=== PATIENT | male | born 1975 | race Caucasian/White ===

== ENCOUNTER → 2017-06-30 | Outpatient (CLI) | payer BC ==
[2017-06-30 15:38] LABS: HEMATOCRIT 45.4 % (42.0-52.0); HEMOGLOBIN 16.5 g/dl (13.5-18.0); MEAN CELL VOLUME 79 fl (80.0-100.0); MEAN CORPUSCULAR HEMOGLOBIN 29 pg (27.0-31.0); MEAN CORPUSCULAR HGB CONC 36 g/dl (33.0-37.0); MEAN PLATELET VOLUME 11.2 fl (7.4-10.4); PLATELET COUNT 194 K/mm3 (130-400); RED BLOOD COUNT 5.76 M/mm3 (4.20-5.60); REDCELL DISTRIBUTION WIDTH-CV 12.2 % (11.5-14.5)
[2017-06-30 15:45] LABS: ALBUMIN 4.2 gm/dL (3.5-5.0); BILIRUBIN,TOTAL 1.4 mg/dL (0.0-1.0); CALCIUM 9.2 mg/dL (8.4-10.2); CHOLESTEROL RISK RATIO 5.9; CREATININE, serum 1.01 mg/dL (0.66-1.25); POTASSIUM 3.9 mmol/L (3.4-5.0); TOTAL PROTEIN 7.9 gm/dL (6.4-8.2)
[2017-06-30 16:20] LABS: THYROID STIMULATING HORMONE 1.52 uIU/mL (0.465-4.680)
[2017-07-01 01:41] LABS: INSULIN 4 uIU/mL (2-23)
== END ==
LOC: COL.LAB 15:06
PROVIDERS: Family Medicine
DX: Z00.00 Encounter for general adult medical examination without abnormal findings (principal); R73.9 Hyperglycemia, unspecified

== ENCOUNTER → 2017-08-06 | Outpatient (CLI) | payer BC | LOC: SUN.DIA 08:17 | DX: E10.9 Type 1 diabetes mellitus without complications (principal); Z68.24 Body mass index [BMI] 24.0-24.9, adult; Z71.3 Dietary counseling and surveillance; Z87.891 Personal history of nicotine dependence | CPT/HCPCS: G0108 ==

== ENCOUNTER → 2017-08-12 | Outpatient (CLI) | payer BC | LOC: COL.LAB 09:29 | DX: E10.65 Type 1 diabetes mellitus with hyperglycemia (principal) ==

== ENCOUNTER → 2017-09-09 | Outpatient (CLI) | payer BC | LOC: SUN.DIA 16:03 | DX: E10.9 Type 1 diabetes mellitus without complications (principal); Z71.3 Dietary counseling and surveillance | CPT/HCPCS: G0109 ==

== ENCOUNTER → 2017-09-16 | Outpatient (CLI) | payer BC | LOC: SUN.DIA 08-26 15:50 | DX: E10.9 Type 1 diabetes mellitus without complications (principal); Z71.3 Dietary counseling and surveillance | CPT/HCPCS: G0109 ==

== ENCOUNTER → 2017-09-29 | Outpatient (CLI) | payer BC | LOC: SUN.DIA 09-23 13:05 | DX: E10.9 Type 1 diabetes mellitus without complications (principal); Z68.24 Body mass index [BMI] 24.0-24.9, adult; Z71.3 Dietary counseling and surveillance; Z87.891 Personal history of nicotine dependence | CPT/HCPCS: G0108 ==

== ENCOUNTER → 2017-10-07 | Outpatient (CLI) | payer BC | LOC: SUN.DIA 08:16 | DX: E10.9 Type 1 diabetes mellitus without complications (principal); Z71.3 Dietary counseling and surveillance | CPT/HCPCS: G0109 ==

== ENCOUNTER → 2017-10-28 | Outpatient (CLI) | payer BC | LOC: SUN.DIA 10:07 | DX: E10.9 Type 1 diabetes mellitus without complications (principal) ==